=== PATIENT | female | born 1930 | race Caucasian/White ===

== ENCOUNTER 2017-07-04 09:34 | Emergency (ER) | payer SELFPAY ==
[~2017-07-04] VITALS: Ht 165.1 cm; Wt 78.8 kg
[2017-07-04] MEDS ORDERED: normal saline 1000ml 1,000 ML IV ONE (10:19)
[2017-07-04] MEDS ORDERED: normal saline 1000ML IV soln IVB ONE (10:20)
[2017-07-04 11:28] LABS: PARTIAL THROMBOPLASTIN TIME 22 SECONDS (22-32); PROTHROMBIN TIME 10.1 SECONDS (9.0-12.0)
[2017-07-04 11:42] LABS: ALANINE AMINOTRANSFERASE 31 U/L (12-78); ALBUMIN 3.7 G/DL (3.4-5.0); ALKALINE PHOSPHATASE 95 IU/L (46-116); ANION GAP 8 (8-16); BILIRUBIN,TOTAL 0.5 MG/DL (0.1-1.0); BLOOD UREA NITROGEN 24 MG/DL (7-18); BUN/CREATININE RATIO 26.7 (6.6-38.0); CHLORIDE 105 MMOL/L (99-107); GLUCOSE 95 MG/DL (70-104); MAGNESIUM 2.2 MG/DL (1.5-2.4); SODIUM 143 MMOL/L (135-145); TOTAL CARBON DIOXIDE 30.5 MMOL/L (24-32); TOTAL PROTEIN 7.4 G/DL (6.4-8.2); eGFR 59 ML/MIN
[2017-07-04 11:43] LABS: ASPARTATE AMINO TRANSFERASE 34 U/L (10-37); POTASSIUM 4.6 MMOL/L (3.5-5.1)
[2017-07-04 12:11] LABS: BASOPHILS % (AUTO) 0.5 % (0-1); EOSINOPHILS % (AUTO) 0.5 % (0-6); HEMATOCRIT 33.1 % (35.0-45.0); HEMOGLOBIN 11.4 g/dl (12.0-16.0); LYMPHOCYTES # (AUTO) 1.1 X10'3 (1.1-4.8); LYMPHOCYTES % (AUTO) 26.9 % (21-51); MEAN CORPUSCULAR HEMOGLOBIN 29.1 PG (27.0-31.0); MEAN CORPUSCULAR HGB CONC 34.3 % (33.0-36.5); MEAN CORPUSCULAR VOLUME 84.8 FL (78-98); MEAN PLATELET VOLUME 8.4 FL (7.4-10.4); MONOCYTES # (AUTO) 0.4 X10'3 (0-0.9); NEUTROPHILS # (AUTO) 2.6 X10'3 (1.8-7.7); NEUTROPHILS % (AUTO) 62.1 % (42-75); PLATELET COUNT 226 X10'3 (140-440); RED CELL DISTRIBUTION WIDTH 12.8 % (11.5-14.5); WHITE BLOOD COUNT 4.1 X10'3 (4.5-11.0)
[2017-07-04 13:19] LABS: COLOR,URINE Yellow (Yellow); GLUCOSE, URINE Negative (Neg); KETONES,URINE Negative (Neg); LEUKOCYTE ESTERASE ,URINE Trace (Neg); NITRITES, URINE Negative (Neg); OCCULT BLOOD,URINE Negative (Neg); PROTEIN,URINE Negative (Neg); UROBILINOGEN,URINE 0.2 E.U/dL (0.2-1.0)
[2017-07-04 13:24] LABS: CLARITY,URINE Slightly Cloudy (Clear); UA COLLECTION TYPE STRAIGHT CATH
[2017-07-04 13:26] LABS: BACTERIA,URINE NONE SEEN /HPF (Neg); RBC,URINE NONE SEEN /HPF (0-2); SQUAMOUS EPITHELIAL CELL,UR FEW /LPF (FEW); TRANSITIONAL EPI CELLS,URINE FEW /HPF; WBC,URINE 0-4 /HPF (0-4)
[2017-07-04] MEDS ORDERED: NITR-79 PO (13:45)
[2017-07-04 13:55] VITALS: BP 143/63
== END 2017-07-04 13:57 | disposition home or self-care (01) ==
LOC: ER 09:35
DX: S00.03XA Contusion of scalp, initial encounter (principal); G62.9 Polyneuropathy, unspecified; W01.0XXA Fall on same level from slipping, tripping and stumbling without subsequent striking against object, initial encounter; Y93.89 Activity, other specified; Y92.89 Other specified places as the place of occurrence of the external cause; Y99.8 Other external cause status
CPT/HCPCS: 36415; 70450; 71045; 80053; 81001; 83605; 83735; 84443; 84484; 85025; 85610; 85730; 87040; 87088; 93005; 96360; 96361; 99285; A4353; J7030

== ENCOUNTER 2020-09-13 12:30 | Inpatient (IN) | payer BC, OTHER ==
[~2020-09-13] VITALS: Ht 165.1 cm; Wt 81.8 kg
[~2020-09-13 12:30] MED LIST: NITR-79 PO; atropine 0.1mg/ml 10ml syringe ONE; calcium chloride 100 MG/1 ML inj IV ONE; epiNEPHrine 0.1mg/ml 10ml syringe ONE; etomidate 2mg/ml inj. ONE; rocuronium 10mg/ml inj IV ONE; sod chloride 0.9% 10ml flush syringe IV ONE; sodium bicarbonate (8.4%) 1 mEq/ml syringe ONE
[2020-09-13] MEDS ORDERED: normal saline 1000ML IV soln IV ONE (12:45)
[2020-09-13] MEDS ORDERED: CefTRIAXone 2gm/D5W 50ml BAG 50 ML IV ONE (12:45)
[2020-09-13 13:35] LABS: BASOPHILS % (AUTO) 0.4 % (0-1); EOSINOPHILS # (AUTO) 0.1 X10'3 (0-0.9); EOSINOPHILS % (AUTO) 0.8 % (0-6); HEMATOCRIT 37.8 % (35.0-45.0); HEMOGLOBIN 12.1 g/dl (12.0-16.0); LYMPHOCYTES # (AUTO) 1.5 X10'3 (1.1-4.8); LYMPHOCYTES % (AUTO) 18.2 % (21-51); MEAN CORPUSCULAR HEMOGLOBIN 26.7 PG (27.0-31.0); MEAN CORPUSCULAR HGB CONC 31.9 g/dL (33.0-36.5); MEAN CORPUSCULAR VOLUME 83.7 FL (78-98); MEAN PLATELET VOLUME 8.2 FL (7.4-10.4); MONOCYTES # (AUTO) 0.8 X10'3 (0-0.9); MONOCYTES % (AUTO) 10.6 % (2-12); NEUTROPHILS # (AUTO) 5.6 X10'3 (1.8-7.7); PLATELET COUNT 242 X10'3 (140-440); RED BLOOD COUNT 4.52 X10'6 (4.20-5.60); RED CELL DISTRIBUTION WIDTH 21.1 % (11.5-14.5)
[2020-09-13 13:42] LABS: ABG BASE EXCESS -3.1 mmol/L (-2.0-2.0); ABG HCO3 20.1 mmol/L (22.0-26.0); ABG OXYGEN SATURATION 94.6 % (94-97); ABG PCO2 (T) 30.5 mmHg (32.0-45.0); ABG PO2 (T) 69.7 mmHg (75.0-100.0); ALLEN'S TEST POSITIVE; FCOHb 0.5 % (0.0-3.9); FMetHb 0.2 % (0.0-1.5); FO2Hb 93.9 % (94-97); TOTAL HEMOGLOBIN 12.5 G/dl (12.0-16.0)
[2020-09-13 13:46] LABS: ALANINE AMINOTRANSFERASE 15 U/L (12-78); ALBUMIN 3.7 G/DL (3.4-5.0); ALBUMIN/GLOBULIN RATIO 0.9 (1.1-1.5); ALKALINE PHOSPHATASE 95 IU/L (46-116); ANION GAP 9 (8-16); ASPARTATE AMINO TRANSFERASE 17 U/L (10-37); BILIRUBIN,TOTAL 0.9 MG/DL (0.1-1.0); BLOOD UREA NITROGEN 21 MG/DL (7-18); BUN/CREATININE RATIO 20.4 (6.6-38.0); CALCIUM 9.3 MG/DL (8.5-10.1); CHLORIDE 108 MMOL/L (99-107); CREATININE 1.03 MG/DL (0.40-0.90); GLUCOSE 139 MG/DL (70-104); POTASSIUM 3.8 MMOL/L (3.5-5.1); SODIUM 143 MMOL/L (135-145); TOTAL CARBON DIOXIDE 25.6 MMOL/L (24-32); TOTAL PROTEIN 7.6 G/DL (6.4-8.2); eGFR 50 ML/MIN
[2020-09-13 13:50] LABS: TROPONIN I 0.08 NG/ML (0.0-0.05)
[2020-09-13 14:23] LABS: ANISOCYTOSIS 3+; ELLIPTOCYTES FEW; PLATELET ESTIMATE NORMAL
[2020-09-13] MEDS ORDERED: aspirin 81mg tab.chew PO ONE (14:45)
[2020-09-13 14:58] LABS: CLARITY,URINE CLEAR (Clear); COLOR,URINE YELLOW (Yellow); GLUCOSE, URINE NEGATIVE (Neg); KETONES,URINE NEGATIVE (Neg); LEUKOCYTE ESTERASE ,URINE NEGATIVE (Neg); NITRITES, URINE NEGATIVE (Neg); OCCULT BLOOD,URINE NEGATIVE (Neg); PROTEIN,URINE NEGATIVE (Neg); UROBILINOGEN,URINE 0.2 E.U/dL (0.2-1.0)
[2020-09-13 15:01] LABS: UA COLLECTION TYPE STRAIGHT CATH
[2020-09-13] MEDS ORDERED: morphine 4 MG/ML inj SYRINge IV ONE (15:40)
[2020-09-13] MEDS ORDERED: LEVO112T5 PO (15:55)
[2020-09-13] MEDS ORDERED: ALPR0.5T9 PO (15:57)
[2020-09-13] MEDS ORDERED: PREG75CA75 PO (15:57)
[2020-09-13] MEDS ORDERED: LIDO700A47 TOP (15:57)
[2020-09-13] MEDS ORDERED: PRE5T PO (15:57)
[2020-09-13] MEDS ORDERED: CHOL20004 PO (16:01)
[2020-09-13] MEDS ORDERED: D-MA1POW PO (16:01)
[2020-09-13] MEDS ORDERED: MELA10TA2 PO (16:01)
[2020-09-13] MEDS ORDERED: LACT1CAP65 PO (16:01)
[2020-09-13] MEDS ORDERED: FERR-39 PO (16:02)
[2020-09-13] MEDS ORDERED: iohexol 350MG/ML 100ml bottle IV ONE (16:11)
[2020-09-13] MEDS ORDERED: heparin 25,000 UNIT/250ml bag 250 ML IV SCH ×2 (17:10→18:35)
[2020-09-13] MEDS ORDERED: heparin 10,000 units/1 ML INJ IV ONE ×2 (17:10→17:15)
--- NOTE | 2020-09-13 17:56 | NUR ---
Pt without co-ag results, received vo from Jed Christensen to start Heparin now and give bolus.
[2020-09-13 18:25] LABS: PARTIAL THROMBOPLASTIN TIME 25 SECONDS (22-32)
[2020-09-13] MEDS ORDERED: magnesium 4gm in 100ml NS 100 ML IV PRN (18:25)
[2020-09-13] MEDS ORDERED: potassium Cl 40MEQ/1/2NS 520ml 520 ML IV PRN ×2 (18:25)
[2020-09-13] MEDS ORDERED: HYDROcodone/acetaminophen 5mg/325mg tablet PO PRN (18:25)
[2020-09-13] MEDS ORDERED: morphine 2 MG/ML inj. syringe IV PRN (18:25)
[2020-09-13] MEDS ORDERED: magnesium 2GM in 50ml NS 50 ML IV PRN (18:25)
[2020-09-13] MEDS ORDERED: magnesium Cl slow-release 64mg tablet PO PRN (18:25)
[2020-09-13] MEDS ORDERED: potassium Cl 20 mEq SR tablet PO PRN ×2 (18:25)
[2020-09-13] MEDS ORDERED: ALPRAZolam 0.5mg tablet PO PRN (18:40)
[2020-09-13] MEDS ORDERED: levoTHYROXINE 112mcg tablet PO SCH (18:40)
[2020-09-13] MEDS ORDERED: predniSONE 5mg tablet PO PRN (18:40)
[2020-09-13] MEDS ORDERED: K and/or MAG REPLACEMENT MC SCH (20:00)
[2020-09-13] MEDS ORDERED: Melatonin 3mg tablet PO SCH (21:00)
[2020-09-13] MEDS ORDERED: pregabalin 75mg capsule PO SCH (21:00)
[2020-09-13 22:00] VITALS: BP 147/78
--- NOTE | 2020-09-13 22:20 | NUR ---
Pt to PCU room w/ dtr at bedside, heparin gtt verified. VSS, pt reports slight anxiety, no CP or SOB. Call light w/ in reach.
[2020-09-14 02:00] VITALS: BP 137/74
[2020-09-14 02:34] LABS: BASOPHILS # (AUTO) 0.1 X10'3 (0-0.2); EOSINOPHILS # (AUTO) 0.1 X10'3 (0-0.9); EOSINOPHILS % (AUTO) 1.3 % (0-6); HEMOGLOBIN 10.3 g/dl (12.0-16.0); LYMPHOCYTES # (AUTO) 1.7 X10'3 (1.1-4.8); LYMPHOCYTES % (AUTO) 30.9 % (21-51); MEAN CORPUSCULAR HEMOGLOBIN 26.8 PG (27.0-31.0); MEAN CORPUSCULAR HGB CONC 32.3 g/dL (33.0-36.5); MEAN CORPUSCULAR VOLUME 83.1 FL (78-98); MEAN PLATELET VOLUME 8.5 FL (7.4-10.4); MONOCYTES # (AUTO) 0.6 X10'3 (0-0.9); NEUTROPHILS % (AUTO) 54.8 % (42-75); PLATELET COUNT 171 X10'3 (140-440); RED BLOOD COUNT 3.85 X10'6 (4.20-5.60); RED CELL DISTRIBUTION WIDTH 21.1 % (11.5-14.5); WHITE BLOOD COUNT 5.4 X10'3 (4.5-11.0)
[2020-09-14 02:57] LABS: ANION GAP 9 (8-16); BLOOD UREA NITROGEN 16 MG/DL (7-18); BUN/CREATININE RATIO 19.3 (6.6-38.0); CALCIUM 8.2 MG/DL (8.5-10.1); CHLORIDE 110 MMOL/L (99-107); CREATININE 0.83 MG/DL (0.40-0.90); GLUCOSE 101 MG/DL (70-104); MAGNESIUM 1.9 MG/DL (1.5-2.4); POTASSIUM 3.8 MMOL/L (3.5-5.1); SODIUM 143 MMOL/L (135-145); TOTAL CARBON DIOXIDE 23.9 MMOL/L (24-32); eGFR 65 ML/MIN
[2020-09-14 06:00] VITALS: BP 139/70
--- NOTE | 2020-09-14 06:34 | NUR ---
Patient in room PCU 3015. I have received report from KAUSHIK Parker and had the opportunity to ask questions and assume patient care. Patient awake in bed and asked to go to the bathroom and in no acute distress.
--- NOTE | 2020-09-14 06:41 | NUR ---
Went to check on patient in the bathroom patient was actively having a seizure. Help was called into the room. Vitals on the patient were HR 112, 97% on 3L NC, BP cuff not working. Patient had an episode of nausea and did not feel well. Patient stated "Call my daughter" and then we got her into the wheelchair and then she lost consciousness. Patient transported to the bed, pulse was checked and pulse was not identified. CPR was started and yuki miller was called.
[2020-09-14] MEDS ORDERED: NORepinephrine 8mg/ 250ml NS 250 ML IV ONE (07:19)
--- NOTE | 2020-09-14 07:55 | NUR ---
Pt. was brought to room 2045 with CPR in progress. Compression being performed by Dr. Mccormack. Dtr. at bedside.
[2020-09-14] MEDS ORDERED: cholecalciferol (vitamin D3) 1,000 unit (25mcg) tablet PO SCH (08:00)
[2020-09-14] MEDS ORDERED: LIDOcaine 5% patch TP SCH (08:00)
[2020-09-14] MEDS ORDERED: lactobacillus rhamnosus 10,000 MMU CELLS/CAPSULE PO SCH (08:00)
[2020-09-14] MEDS ORDERED: ferrous sulfate 325mg tablet PO SCH (08:00)
--- NOTE | 2020-09-14 08:50 | NUR ---
RN IS TO DOCUMENT YES TO ALL APPLICABLE AREAS Pronouncement of :834 1. Time Physician Notified:[id number] 2. Date of : 09/14/2020 3. Time of : 834 4. DNR/Withdraw life support documented: SEE PHYSICIAN NOTES 5. Monitor strip has been placed on chart: YES 6. Assessment process is of one-minute duration and includes following criteria: a) Patient is unresponsive to all stimuli: YES b) Pupils fixed and non-reactive:YES c) Auscultation of precordium reveals absence of heart tones:YES d) Auscultation of lungs reveals absence of breath sounds:YES e) Absence of blood pressure / all vital signs:YES f) QRS complexes are not present on monitor / EKG strip:YES g) Pacer spikes without capture:N/A 4. Comments:FAMILY AT BEDSIDE DURING CODE AND WHEN PATIENT WAS PRONOUNCED
--- NOTE | 2020-09-14 09:52 | NUR ---
Family left after spending time with pt. Donor network called Ref. #[id number]. [facility] called.
--- NOTE | 2020-09-14 13:18 | NUR ---
[facility] here to take pt. to mortuary.
== END 2020-09-14 19:31 | disposition expired | DRG 208 ==
LOC: ER 12:31 → ED HOLD 18:23 → PCU 3S 22:00 → ICU 2S 09-14 07:22
PROVIDERS: ADMIT Internal Medicine; ATTEND Internal Medicine
PROC: B32T1ZZ Computerized Tomography (CT Scan) of Left Pulmonary Artery using Low Osmolar Contrast (ICD-10-PCS; 2020-09-13)
PROC: B3201ZZ Computerized Tomography (CT Scan) of Thoracic Aorta using Low Osmolar Contrast (ICD-10-PCS; 2020-09-13)
PROC: B32S1ZZ Computerized Tomography (CT Scan) of Right Pulmonary Artery using Low Osmolar Contrast (ICD-10-PCS; 2020-09-13)
PROC: B4201ZZ Computerized Tomography (CT Scan) of Abdominal Aorta using Low Osmolar Contrast (ICD-10-PCS; 2020-09-13)
PROC: B4241ZZ Computerized Tomography (CT Scan) of Superior Mesenteric Artery using Low Osmolar Contrast (ICD-10-PCS; 2020-09-13)
PROC: B4281ZZ Computerized Tomography (CT Scan) of Bilateral Renal Arteries using Low Osmolar Contrast (ICD-10-PCS; 2020-09-13)
PROC: B42H1ZZ Computerized Tomography (CT Scan) of Bilateral Lower Extremity Arteries using Low Osmolar Contrast (ICD-10-PCS; 2020-09-13)
PROC: B4211ZZ Computerized Tomography (CT Scan) of Celiac Artery using Low Osmolar Contrast (ICD-10-PCS; 2020-09-13)
PROC: 5A1935Z Respiratory Ventilation, Less than 24 Consecutive Hours (ICD-10-PCS; principal; 2020-09-14)
PROC: 0BH17EZ Insertion of Endotracheal Airway into Trachea, Via Natural or Artificial Opening (ICD-10-PCS; 2020-09-14)
PROC: 5A12012 Performance of Cardiac Output, Single, Manual (ICD-10-PCS; 2020-09-14)
PROC: 06HY33Z Insertion of Infusion Device into Lower Vein, Percutaneous Approach (ICD-10-PCS; 2020-09-14)
DX: I26.92 Saddle embolus of pulmonary artery without acute cor pulmonale (principal); J96.00 Acute respiratory failure, unspecified whether with hypoxia or hypercapnia; I82.4Y2 Acute embolism and thrombosis of unspecified deep veins of left proximal lower extremity; G47.33 Obstructive sleep apnea (adult) (pediatric); M54.5 Low back pain; E03.9 Hypothyroidism, unspecified; G62.9 Polyneuropathy, unspecified; I46.9 Cardiac arrest, cause unspecified; I50.811 Acute right heart failure; Z96.652 Presence of left artificial knee joint; R00.1 Bradycardia, unspecified; Z79.899 Other long term (current) drug therapy; Z66 Do not resuscitate; Z51.5 Encounter for palliative care
CPT/HCPCS: 36415; 36600; 70450; 71045; 71275; 74177; 80048; 80053; 81003; 82803; 83605; 83735; 83880; 84145; 84484; 85008; 85018; 85025; 85730; 87040; 87081; 92950; 93005; 93922; 93970; 94002; 94799; 96361; 96365; 96367; 96375; 99291; G0378; J0171; J0461; J0696; J1644; J2270; J7030; Q9967